=== PATIENT | female | born 1990 | race Caucasian/White ===

== ENCOUNTER 2016-10-07 19:10 | Emergency (ER) | payer SELFPAY ==
--- NOTE | 2016-10-07 19:52 | ER Document Report ---
ED Medical Screen (RME) - General Chief Complaint: Vaginal Bleeding Stated Complaint: VAGINAL BLEEDING Time seen by provider: 19:50 Mode of Arrival: Ambulatory Information source: Patient Notes: 26-year-old female presents to ED for vaginal bleeding no pelvic pain. She states her last menstrual period was 2 months ago and she had 3 positive test. 1 I have greeted and performed a rapid initial assessment of this patient. A comprehensive ED assessment and evaluation of the patient, analysis of test results and completion of medical decision making process will be conducted by an additional ED providers.
[2016-10-07 22:07] LABS: ABSOLUTE BASOPHILS # (AUTO) 0.1 10^3/uL (0.0-0.2); ABSOLUTE EOSINOPHILS # (AUTO) 0.6 10^3/uL (0.0-0.6); ABSOLUTE LYMPHOCYTES (AUTO) 3.2 10^3/uL (0.5-4.7); ABSOLUTE MONOCYTES (AUTO) 0.8 10^3/uL (0.1-1.4); ABSOLUTE NEUT (AUTO) 7.1 10^3/uL (1.7-8.2); BASOPHILS % (AUTO) 0.7 % (0-2); EOSINOPHILS % (AUTO) 5.1 % (0-6); HEMATOCRIT 45.5 % (36.0-47.0); HGB HCT DIFFERENCE -0.5; LYMPHOCYTES % (AUTO) 27.3 % (13-45); MEAN CORPUSCULAR HEMOGLOBIN 28.4 pg (27.0-33.4); MEAN CORPUSCULAR HGB CONC 32.9 g/dL (32.0-36.0); MEAN CORPUSCULAR VOLUME 86 fl (80-97); MONOCYTES % (AUTO) 6.9 % (3-13); RED BLOOD COUNT 5.27 10^6/uL (3.72-5.28); RED CELL DISTRIBUTION WIDTH 13.3 % (11.5-14.0); WHITE BLOOD COUNT 11.9 10^3/uL (4.0-10.5)
[2016-10-07 22:16] LABS: ALANINE AMINOTRANSFERASE 40 U/L (9-52); ALBUMIN 4.3 g/dL (3.5-5.0); ALKALINE PHOSPHATASE 73 U/L (38-126); ANION GAP 12 (5-19); ASPARTATE AMINO TRANSFERASE 22 U/L (14-36); BILIRUBIN,TOTAL 0.4 mg/dL (0.2-1.3); BLOOD UREA NITROGEN 15 mg/dL (7-20); CALCIUM 9.7 mg/dL (8.4-10.2); CARBON DIOXIDE 25 mmol/L (22-30); CHLORIDE 104 mmol/L (98-107); CREATININE RESULT 0.74 mg/dL (0.52-1.25); GLUCOSE 102 mg/dL (75-110); SODIUM 140.8 mmol/L (137-145); TOTAL PROTEIN 7.2 g/dL (6.3-8.2)
[2016-10-07 22:17] LABS: APPEARANCE,URINE SLIGHTLY-CLOUDY; BILIRUBIN,URINE NEGATIVE (NEGATIVE); GLUCOSE, URINE NEGATIVE (NEGATIVE); KETONES,URINE NEGATIVE (NEGATIVE); LEUKOCYTE ESTERASE,URINE NEGATIVE (NEGATIVE); NITRITE,URINE NEGATIVE (NEGATIVE); PROTEIN,URINE NEGATIVE (NEGATIVE); URINE SPECIFIC GRAVITY 1.019; UROBILINOGEN,URINE NEGATIVE mg/dL (<2.0)
--- NOTE | 2016-10-08 01:20 | ER Document Report ---
ED GI/ - General Chief Complaint: Vaginal Bleeding Stated Complaint: VAGINAL BLEEDING Time seen by provider: 01:18 Mode of Arrival: Ambulatory Information source: Patient TRAVEL OUTSIDE OF THE [place] IN LAST 30 DAYS: No - HPI Patient complains to provider of: Vaginal bleeding Onset: Last week Timing/Duration: Persistent Quality of pain: No pain Vaginal bleeding (Compared to normal period): Spotting Associated symptoms: None Exacerbated by: Denies Relieved by: Denies Similar symptoms previously: No Recently seen / treated by doctor: No Notes: 10/08/16 02:17 Patient is a 26-year-old female presenting to the emergency room complaining of vaginal spotting, 3 positive home tests, and last menstrual period was in July, she recently moved to the area from [place] and has been unable to establish CT SCAN TECH care, no previous pregnancies, denies any pain, no injury - Related Data Allergies/Adverse Reactions: amoxicillin Allergy (Verified 10/08/16 01:37) levofloxacin [From Levaquin] Allergy (Verified 10/08/16 01:37) Penicillins Allergy (Verified 10/08/16 01:37) Past Medical History - General Information source: Patient - Social History Smoking Status: Current Every Day Smoker Family History: Reviewed & Not Pertinent Patient has suicidal ideation: No Patient has homicidal ideation: No Renal/ Medical History: Denies: Hx Peritoneal Dialysis Review of Systems - Review of Systems Constitutional: No symptoms reported EENT: No symptoms reported Cardiovascular: No symptoms reported Respiratory: No symptoms reported Gastrointestinal: No symptoms reported Genitourinary: No symptoms reported Female Genitourinary: See HPI Musculoskeletal: No symptoms reported Skin: No symptoms reported Hematologic/Lymphatic: No symptoms reported Neurological/Psychological: No symptoms reported -: Yes All other systems reviewed and negative Physical Exam - Vital signs Vitals: Temp Pulse Resp BP Pulse Ox 97.8 F 80 18 125/81 99 10/08/16 01:39 10/08/16 01:39 10/08/16 01:39 10/08/16 01:39 10/08/16 01:39 Interpretation: Normal - Notes Notes: - General General appearance: Appears well, Alert In distress: None - HEENT Head: Normocephalic, Atraumatic Eyes: Normal Conjunctiva: Normal Extraocular movements intact: Yes Eyelashes: Normal Pupils: PERRL - Respiratory Respiratory status: No respiratory distress - Cardiovascular Rhythm: Regular - Abdominal Inspection: Normal - Back Back: Normal - Extremities General upper extremity: Normal inspection General lower extremity: Normal inspection - Neurological Neuro grossly intact: Yes Orientation: AAOx4 [place] Coma Scale Eye Opening: Spontaneous Zahra Coma Scale Verbal: Oriented Zahra Coma Scale Motor: Obeys Commands Zahra Coma Scale Total: 15 - Psychological Associated symptoms: Normal affect, Normal mood - Skin Skin Temperature: Warm Skin Moisture: Dry Skin Color: Normal Course - Re-evaluation Re-evalutation: 10/08/16 02:18 Lab findings were discussed with patient at bedside, she was advised to return in 3 days time for repeat quantitative hCG or otherwise follow-up with CT SCAN TECH or primary care, patient acknowledges understanding and agreement with this plan - Vital Signs Vital signs: Temp Pulse Resp BP Pulse Ox 97.8 F 80 18 125/81 99 10/08/16 01:39 10/08/16 01:39 10/08/16 01:39 10/08/16 01:39 10/08/16 01:39 - Laboratory Result Diagrams: 10/07/16 21:52 10/07/16 21:52 Laboratory results interpreted by me: 10/07/16 10/07/16 10/07/16 21:52 21:52 21:52 WBC 11.9 H Beta HCG, Quant 9.53 H Urine Blood LARGE H Discharge - Discharge Clinical Impression: Vaginal bleeding before 22 weeks gestation Condition: Stable Disposition: HOME, SELF-CARE Instructions: Vaginal Bleeding ([facility]), Bleeding During Early ([facility]), ([facility]) Additional Instructions: Follow-up with an CT SCAN TECH within the next week. Return to the emergency room immediately if symptoms worsen or any additional concerns. Your hormone level today is quite low at 9.53. It is important for you to have a repeat level in 3 days time. You have been given a slip to have outpatient labs performed in 3 days. Please return to the nearest emergency room immediately if her symptoms should worsen in any way. Forms: Follow-Up Laboratory Testing, Smoking Cessation Education
[2016-10-08 01:39] VITALS: BP 125/81
== END 2016-10-08 01:40 | disposition home or self-care (01) ==
LOC: ER 19:10
DX: O20.9 Hemorrhage in early pregnancy, unspecified (principal); O99.331 Smoking (tobacco) complicating pregnancy, first trimester; Z88.0 Allergy status to penicillin
CPT/HCPCS: 36415; 80053; 81001; 84702; 85025; 86900; 86901; 99284

== ENCOUNTER 2016-10-14 08:21 | Emergency (ER) | payer MEDICAID ==
--- NOTE | 2016-10-14 11:41 | ER Document Report ---
ED General - General Chief Complaint: Abnormal Lab Results Stated Complaint: POSSIBLE HCG LEVEL LOW TRAVEL OUTSIDE OF THE [place] IN LAST 30 DAYS: No - HPI Patient complains to provider of: beta-hCG level evaluation Notes: Patient coming in requesting a quantitative beta-hCG. Patient was seen previously for vaginal bleeding with no initial cycle since July was found to have a beta-hCG level of 9. Patient states approximately 2 days prior to arrival she [facility] performed another beta-hCG level performed which was then at 10. Patient was told to return to the ER for repeat level XLVIII hours. Patient returns today for this repeat level. Patient states she is mildly spotting barely going through a pad a day. Patient states that she's not having abdominal pain. Denies fevers chills nausea vomiting diarrhea. Patient states she has not yet had a chance to follow-up with the health department or local CLINICAL REGISTERED NURSE as that she recently moved from [place] does not have Medicaid - Related Data Allergies/Adverse Reactions: amoxicillin Allergy (Verified 10/14/16 08:34) levofloxacin [From Levaquin] Allergy (Verified 10/14/16 08:34) Penicillins Allergy (Verified 10/14/16 08:34) Past Medical History - Social History Smoking Status: Current Some Day Smoker Chew tobacco use (# tins/day): No Frequency of alcohol use: None Drug Abuse: None Family History: Reviewed & Not Pertinent Patient has suicidal ideation: No Patient has homicidal ideation: No Renal/ Medical History: Denies: Hx Peritoneal Dialysis Review of Systems - Review of Systems Constitutional: No symptoms reported EENT: No symptoms reported Cardiovascular: No symptoms reported Respiratory: No symptoms reported Gastrointestinal: No symptoms reported Genitourinary: No symptoms reported - Spotting Female Genitourinary: Vaginal bleeding Musculoskeletal: No symptoms reported Skin: No symptoms reported Hematologic/Lymphatic: No symptoms reported Neurological/Psychological: No symptoms reported Physical Exam - Vital signs Vitals: Temp Pulse Resp BP Pulse Ox 98.3 F 81 18 130/73 H 99 10/14/16 08:35 10/14/16 08:35 10/14/16 08:35 10/14/16 08:35 10/14/16 08:35 Interpretation: Normal - General General appearance: Appears well, Alert - HEENT Head: Normocephalic, Atraumatic Eyes: Normal Pupils: PERRL - Respiratory Respiratory status: No respiratory distress Chest status: Nontender Breath sounds: Normal Chest palpation: Normal - Cardiovascular Rhythm: Regular Heart sounds: Normal auscultation Murmur: No - Abdominal Inspection: Normal Distension: No distension Bowel sounds: Normal Tenderness: Nontender Organomegaly: No organomegaly - Back Back: Normal, Nontender - Extremities General upper extremity: Normal inspection, Nontender, Normal color, Normal ROM , Normal temperature General lower extremity: Normal inspection, Nontender, Normal color, Normal ROM , Normal temperature, Normal weight bearing. No: Ro's sign - Neurological Neuro grossly intact: Yes Cognition: Normal Orientation: AAOx4 [place] Coma Scale Eye Opening: Spontaneous Zahra Coma Scale Verbal: Oriented Zahra Coma Scale Motor: Obeys Commands [place] Coma Scale Total: 15 Speech: Normal Motor strength normal: LUE, RUE, LLE, RLE Sensory: Normal - Psychological Associated symptoms: Normal affect, Normal mood - Skin Skin Temperature: Warm Skin Moisture: Dry Skin Color: Normal Course - Re-evaluation Re-evalutation: 10/14/16 15:17 Patient has a decreased beta-hCG with a recently negative ultrasound no abdominal pain. Did educate the patient about possible ectopic however at this time fill this is less likely. Also with a recently negative ultrasound as reported by the patient also discussed possibility of this being a possible tumor or mass. Offered another ultrasound to the patient however this time she declines. We have the patient evaluated by her social services assistant to also establish care. Otherwise patient has no signs of life threatening injury. Patient states reasons to return to the ER. Patient will be discharged - Vital Signs Vital signs: Temp Pulse Resp BP Pulse Ox 98.3 F 91 18 131/76 H 98 10/14/16 08:35 10/14/16 11:32 10/14/16 08:35 10/14/16 11:32 10/14/16 11:32 - Laboratory Laboratory results interpreted by me: 10/14/16 09:37 Beta HCG, Quant 8.58 H Discharge - Discharge Clinical Impression: Elevated serum hCG, Vaginal bleeding Condition: Good Disposition: HOME, SELF-CARE Instructions: Ectopic Precaution ([facility]) Additional Instructions: At this time your lab work shows a continued low level of beta-hCG hormone in your blood work. With his continued low-level I do not think at this time that you're with your recent ultrasound of your abdomen also did not think there is any signs of an ectopic . Please continue to review your discharge instructions for ectopic return to the ER if he started having abdominal pain or passing out. I would highly recommend following up with CLINICAL REGISTERED NURSE. Return to ER symptoms worsen.
[2016-10-14 12:00] VITALS: BP 131/76
== END 2016-10-14 11:40 | disposition home or self-care (01) ==
LOC: ER 08:21
DX: R74.8 Abnormal levels of other serum enzymes (principal); N93.8 Other specified abnormal uterine and vaginal bleeding; Z88.0 Allergy status to penicillin
CPT/HCPCS: 36415; 84702; 99283

== ENCOUNTER → 2016-10-17 | Outpatient (CLI) | payer MEDICAID | LOC: OCH 07:15 | DX: O02.1 Missed abortion (principal) | CPT/HCPCS: 36415; 84702 ==

== ENCOUNTER → 2016-10-21 | Outpatient (CLI) | payer MEDICAID | LOC: OCH 07:22 | DX: O02.1 Missed abortion (principal) | CPT/HCPCS: 36415; 84702 ==

== ENCOUNTER → 2016-10-23 | Outpatient (CLI) | payer MEDICAID ==
--- NOTE | 2016-10-23 08:26 | WOMENS IMAGING REPORT ---
EXAM DESCRIPTION: U/S PELVIS NON-OB COMPLETED DATE/TIME: 10/23/2016 8:13 am REASON FOR STUDY: N91.0 PRIMARY AMENORRHEA O02.1 MISSED N91.0 PRIMARY AMENORRHEA COMPARISON: None. TECHNIQUE: Dynamic and static grayscale images acquired of the pelvis via transabdominal approach an d recorded on PACS. Additional selected color Doppler and spectral images recorded. LIMITATIONS: None. FINDINGS: UTERUS: Contour normal. No mass. ENDOMETRIAL STRIPE: No focal or generalized thickening. No masses. No IUP is identified. CERVIX: No nabothian cysts. RIGHT OVARY: Septated cyst is identified measuring 2.3 x 1.4 x 1.9 cm RIGHT OVARY DOPPLER: Normal arterial vascular flow without evidence for torsion. LEFT OVARY: No abnormal masses. LEFT OVARY DOPPLER: Normal arterial vascular flow without evidence for torsion. FREE FLUID: None noted. OTHER: No other significant finding. MEASUREMENTS: UTERUS: 11.2 x 3.0 x 3.2 cm ENDOMETRIAL STRIPE: 9 mm RIGHT OVARY: 3.6 x 2.1 x 3.3 cm LEFT OVARY: 4.0 x 2.0 x 2.77 TECHNICAL DOCUMENTATION: JOB ID: [id number]- All Rights Reserved
== END ==
LOC: WI 07:05
PROVIDERS: ATTEND Nurse Practitioner Women's Health
DX: O02.1 Missed abortion (principal); N91.0 Primary amenorrhea
CPT/HCPCS: 76856

== ENCOUNTER → 2016-10-23 | Outpatient (CLI) | payer MEDICAID | LOC: OCH 07:29 | DX: O02.1 Missed abortion (principal) | CPT/HCPCS: 36415; 84702 ==